=== PATIENT | male | born 1990 | race Caucasian/White ===

== ENCOUNTER 2018-01-02 15:50 | Emergency (ER) | payer OTHER, MEDICAID, SELFPAY ==
[2018-01-02 15:59] VITALS: BP 119/76; PULSE 86; RESP 20; TEMP 36.7; O2SAT 95
--- NOTE | 2018-01-02 20:40 | ED_ITS ---
HPI - Skin/Abscess/Foreign Bdy <Arely Galeano PA-C - Last Filed: 01/02/18 22:58> General Chief complaint: Skin/Abscess/Foreign Body Stated complaint: OPEN WOUNDS ALL OVER BODY Time Seen by Provider: 01/02/18 20:40 Source: patient Mode of arrival: ambulatory Limitations: no limitations History of Present Illness HPI narrative: This 27-year-old male comes in due to persistent facial lesions. He states that he was seen at another local hospital about a week ago ago for what started as a pimple on his central forehead, and he states that this was drained and he was put on an antibiotic. He is not sure what the antibiotic was , states taking once a day. He states that he has also had many other sores on his face which continue to increase, with some drainage and persistent yellow crusting. He states he does not usually get acne. He has various chronic sores on his extremities that he states are related to previous drug use, which he discontinued in October when he was incarcerated. The facial lesions are new since the of the month when he was released from nursing home. He states he did not have these in nursing home. He states since he started, he has felt warm a couple of times but has not had any known fever. He denies any systemic or chronic illness or infectious disease or other complaints today and states he mainly came in because this is not getting better on antibiotics Related Data Previous Rx's Medication Instructions Recorded clindamycin HCl 300 mg PO Q6H 7 Days #28 cap 01/02/18 mupirocin 1 applictn TOP BID #30 gram 01/02/18 Allergies Allergy/AdvReac Type Severity Reaction Status Date / Time No Known Drug Allergies Allergy Verified 01/02/18 21:42 Review of Systems <Arely Galeano PA-C - Last Filed: 01/02/18 22:58> Review of Systems All systems reviewed & are unremarkable except as noted in HPI and below Exam <Arely Galeano PA-C - Last Filed: 01/02/18 22:58> Initial Vital Signs Initial Vital Signs: Vital Signs Temperature 98.1 F 01/02/18 15:59 Pulse Rate 86 01/02/18 15:59 Respiratory Rate 20 01/02/18 15:59 Blood Pressure 119/76 01/02/18 15:59 Pulse Oximetry 95 01/02/18 15:59 GENERAL APPEARANCE: Patient sitting comfortably, in no distress. NECK: Supple, no lymphadenopathy LUNGS: Clear to auscultation bilaterally. HEART: Rate and rhythm regular without murmur, normal S1 and S2, no S3 or S4. DERMATOLOGIC: There are numerous large papular lesions scattered about the face , most concentrated on the forehead and chin. Most of these are scabbed, with some yellow crusting. There is an occasional papular or pustular lesion, no abscess or fluctuance. Dried, pale lesions without crusting are noticed over the extremities EXTREMITIES: No edema <Jaya Irwin DO - Last Filed: 01/03/18 03:53> Initial Vital Signs Initial Vital Signs: Vital Signs Temperature 98.1 F 01/02/18 15:59 Pulse Rate 86 01/02/18 15:59 Respiratory Rate 20 01/02/18 15:59 Blood Pressure 119/76 01/02/18 15:59 Pulse Oximetry 95 01/02/18 15:59 Course <Arely Galeano PA-C - Last Filed: 01/02/18 22:58> Orders Ordered: Discontinued Medications Clindamycin HCl (Cleocin) 300 mg PO NOW ONE Stop: 01/02/18 21:05 Last Admin: 01/02/18 21:43 Dose: 300 mg Ibuprofen (Advil) 800 mg PO NOW ONE Stop: 01/02/18 21:05 Last Admin: 01/02/18 21:43 Dose: 800 mg Vital Signs - 8 hr 01/02/18 21:57 Pulse Rate 78 Respiratory Rate 18 Blood Pressure [Left Arm] 96/60 Pulse Oximetry 198 H <Jaya Irwin DO - Last Filed: 01/03/18 03:53> Orders Ordered: Discontinued Medications Clindamycin HCl (Cleocin) 300 mg PO NOW ONE Stop: 01/02/18 21:05 Last Admin: 01/02/18 21:43 Dose: 300 mg Ibuprofen (Advil) 800 mg PO NOW ONE Stop: 01/02/18 21:05 Last Admin: 01/02/18 21:43 Dose: 800 mg Vital Signs - 8 hr 01/02/18 21:57 Pulse Rate 78 Respiratory Rate 18 Blood Pressure [Left Arm] 96/60 Pulse Oximetry 198 H Discharge Plan Departure Patient Disposition: Home, Self-Care Clinical Impression: Staph skin infection, Impetigo Discharge Date/Time: 01/02/18 22:01 Interventions: ED Discharge Assessment Last Done: 01/02/18 22:00 Instructions: DI for Impetigo Activity Restrictions/Additional Instructions: I suspect that you have a skin infection from bacteria called Streptococcus and Staphylococcus that can cause pimple like lesions and crusting like you have had. You do not appear to need drainage of another abscess or lesion at this point. Since we cannot determine what antibiotic you have been taking, please discontinue this and changed to the clindamycin that we started you on tonight. I have sent a prescription for that to [facility] for you to continue in the morning. Please continue ibuprofen as well, 800 mg every 8 hr as needed for pain and inflammation. Please call your insurance or the [facility] in [facility] if you have none to arrange for a referral to a primary care provider for follow up. In the interim you should return to the closest ED or urgent care if you have any acutely worsening symptoms. Prescriptions: New clindamycin HCl 300 mg capsule 300 mg PO Q6H 7 Days Qty: 28 RF: 0 mupirocin 2 % ointment 1 applictn TOP BID Qty: 30 RF: 0 <Jaya Irwin DO - Last Filed: 01/03/18 03:53> [facility] ED Attending Zahida Attestation: I was immediately available in the department for consultation. Documentation has been reviewed. I agree with assessment and plan.
[2018-01-02] MEDS: IBUPROFEN 400 MG TABLET 800 MG PO (21:43)
[2018-01-02] MEDS: CLINDAMYCIN 150 MG CAPSULE 300 MG PO (21:43)
[2018-01-02 21:57] VITALS: BP 96/60; PULSE 78; RESP 18; O2SAT 198
== END 2018-01-02 22:01 | disposition home or self-care (01) ==
PROVIDERS: Emergency Provider Internal Medicine
DX: L08.9 Local infection of the skin and subcutaneous tissue, unspecified (principal); B95.8 Unspecified staphylococcus as the cause of diseases classified elsewhere; L01.00 Impetigo, unspecified
CPT/HCPCS: 99282; 99283

== ENCOUNTER 2018-01-16 22:15 | Emergency (ER) | payer OTHER, MEDICAID, SELFPAY ==
[2018-01-16 22:33] VITALS: BP 130/85; PULSE 71; RESP 18; TEMP 36.2; O2SAT 98
--- NOTE | 2018-01-17 00:16 | ED.RECABL ---
HPI - Recheck/Abnormal Lab/Rx General Chief Complaint: Recheck/Abnormal Lab/Rx Stated Complaint: STATES BLOOD INFECTION IN HIS HEART Time Seen by Provider: 01/17/18 00:16 Source: patient Mode of arrival: ambulatory Limitations: no limitations History of Present Illness HPI narrative: The patient was admitted at [facility] 2 days ago with sepsis. He has IV drug abuse issues. He was seen here 2-3 weeks ago with multiple small abscesses on the face, treated by Nataliia and Bactrim DS. One of two blood cultures from the initial visit was positive for MRSA. he still has skin lesions and apparently had erythema. He was admitted and started on IV vancomycin. He tells me he had fever and chills associated with the 1st visit, but now with the 2nd visit and admission. I reviewed his records, he was not febrile and did not have an elevated WBC with this admission. We called the check, blood cultures From the 2nd visitare still pending at this time. he was admitted and given IV antibiotics, the left AMA earlier today. He developed left arm thrombophlebitis, he called this to staff attention, but felt ignored. The IV was eventually removed and a 2nd IV placed in his right arm. The right arm was uncomfortable with the IV. He signed out AMA. He is not on antibiotics. Related Data Previous Rx's Medication Instructions Recorded mupirocin 1 applictn TOP BID #30 gram 01/02/18 sulfamethoxazole-trimethoprim 1 tab PO BID 10 Days #20 tab 01/17/18 Allergies Allergy/AdvReac Type Severity Reaction Status Date / Time No Known Drug Allergies Allergy Verified 01/02/18 21:42 Review of Systems Review of Systems All systems reviewed & are unremarkable except as noted in HPI and below Constitutional Reports as per HPI, Denies body ache(s), Denies chills, Reports fatigue and Denies fever(s) Eyes Denies change in vision, Denies eye discharge and Denies irritation ENT Ears, Nose, Mouth, and Throat: Denies dizziness, Denies dry mouth, Denies lip swelling and Denies mouth lesions Cardiovascular Denies chest pain, Denies irregular heart rhythm, Denies lightheadedness, Denies palpitations, Denies dyspnea, Denies dyspnea on exertion and Denies orthopnea Respiratory Denies cough, Denies dyspnea, Denies dyspnea on exertion and Denies wheezing Gastrointestinal Gastrointestinal: Denies abdominal pain, Denies change in bowel habits, Denies diarrhea, Denies nausea and Denies vomiting Musculoskeletal Denies back pain, Denies muscle weakness, Denies numbness and Denies tingling Integumentary/Breasts Denies pruritus, Denies erythema, Denies rash and Denies wounds Neurologic Denies confusion, Denies dizziness, Denies numbness and Denies tingling Psychiatric Denies confusion Endocrine Reports fatigue and Denies palpitations Allergic/Immunologic Denies lip swelling and Denies wheezing PFSH Medical History Polysubstance (including opioids) dependence w/o physiol dependence (Acute) History of drug abuse (Chronic) Social History Smoking Status: Former smoker Exam Initial Vital Signs Initial Vital Signs: Vital Signs Temperature 97.2 F L 01/16/18 22:33 Pulse Rate 71 01/16/18 22:33 Respiratory Rate 18 01/16/18 22:33 Blood Pressure 130/85 H 01/16/18 22:33 Pulse Oximetry 98 01/16/18 22:33 Const General: cooperative, comfortable, No acute distress and No diaphoretic Orientation: alert, awake and oriented x3 HENMT Head: normocephalic Mouth: oral mucosae normal Eyes Eyelids: eyelids normal Conjunctivae: conjunctivae normal Neck Neck: anterior neck swelling and lymphadenopathy Thyroid: thyroid normal Carotids: normal carotid upstroke Chest Chest: normal inspection of the chest Resp Effort & Inspection: normal respiratory effort, able to speak in complete sentences, no respiratory distress and no use of accessory muscles Auscultation: clear to auscultation bilaterally, no rales, no rhonchi and no wheezes Cardio Rate: regular rate Rhythm: regular rhythm Heart Sounds: no click, no gallops, no murmurs and no rubs Pulses: normal peripheral pulses GI Inspection: non-distended Palpation: soft, no hepatosplenomegaly, No guarding, No pulsatile mass and No tender Auscultation: normal bowel sounds Back/Spine/Pelvis Back: No CVA tenderness Cervical Spine: cervical ROM normal and No pain with cervical ROM Thoracic/Lumbar Spine: thoracic and lumbar spine normal to inspection Skin General: No jaundice, No petechiae and other ( He has brightly erythematous pick diggs across his face, upper torso, upper and lower extremities. There are eschar formations at multiple sites. There is subtle erythema multiple sites. He has no obvious abscess formation. There are no sites of fluctuance.) Neuro General: oriented x3 and no focal motor deficits Course Orders Ordered: ED Orders 01/17/18 00:52 Blood Culture Stat Complete Blood Count AUTO DIFF Stat Comprehensive Metabolic Panel Stat Lactate (Lactic Acid) Stat Partial Thromboplastin Time Stat Procalcitonin Stat Prothrombin Time INR Stat Discontinued Medications Trimethoprim/Sulfamethoxazole (Bactrim Ds Prepack) 1 bottle MISC SEEINSTR ONE Stop: 01/17/18 01:43 Last Admin: 01/17/18 01:51 Dose: 1 bottle Vital Signs - 8 hr 01/16/18 22:33 Temperature 97.2 F L Pulse Rate 71 Respiratory Rate 18 Blood Pressure 130/85 H Pulse Oximetry 98 MDM - Recheck/Abnormal Lab/Rx Lab Data Result diagrams: 01/17/18 00:52 01/17/18 00:52 Lab Results 01/17/18 01/17/18 01/17/18 Range/Units 00:52 00:52 00:52 WBC (4.5-11.0) X10^3/uL RBC (4.5-5.9) X10^6/uL Hgb (13.5-17.5) g/dL Hct (41-53) % MCV (80-100) fL MCH (26-34) PG MCHC (30-36) % RDW (11.6-14.8) % Plt Count (150-400) X10^3/uL Neut % (Auto) (50-75) % Lymph % (Auto) (25-40) % Corson % (Auto) (3-14) % Eos % (Auto) (2-4) % Baso % (Auto) (0-2) % Neut # (Auto) (6732-2681) /uL PT 11.5 (10.1-12.7) SECONDS INR 1.1 (0.9-1.3) APTT 32 (26.4-36.2) SECONDS Sodium (137-145) mmol/L Potassium (3.4-5.1) mmol/L Chloride (98-107) mmol/L Carbon Dioxide (22-32) mmol/L BUN (9-20) mg/dL Creatinine (0.66-1.25) mg/dL Estimated GFR (>60) mL/min BUN/Creatinine Ratio (6-22) Glucose (70-100) mg/dL Lactate 0.8 (0.7-2.1) mmol/L Calcium (8.4-10.2) mg/dL Total Bilirubin (0.2-1.3) mg/dL AST (17-59) IU/L ALT (21-72) IU/L Alkaline Phosphatase (38-126) U/L Total Protein (6.3-8.2) g/dL Albumin (3.5-5.0) g/dL Globulin (1.7-4.1) g/dL Albumin/Globulin Ratio (1.0-2.8) Procalcitonin < 0.05 (<0.5) ng/mL 01/17/18 01/17/18 Range/Units 00:52 00:52 WBC 8.9 (4.5-11.0) X10^3/uL RBC 4.13 L (4.5-5.9) X10^6/uL Hgb 12.5 L (13.5-17.5) g/dL Hct 37.2 L (41-53) % MCV 90.1 (80-100) fL MCH 30.2 (26-34) PG MCHC 33.5 (30-36) % RDW 14.7 (11.6-14.8) % Plt Count 411 H (150-400) X10^3/uL Neut % (Auto) 66.2 (50-75) % Lymph % (Auto) 24.6 L (25-40) % Corson % (Auto) 7.3 (3-14) % Eos % (Auto) 1.2 L (2-4) % Baso % (Auto) 0.7 (0-2) % Neut # (Auto) 5900 (8700-4493) /uL PT (10.1-12.7) SECONDS INR (0.9-1.3) APTT (26.4-36.2) SECONDS Sodium 144 (137-145) mmol/L Potassium 3.9 (3.4-5.1) mmol/L Chloride 106 (98-107) mmol/L Carbon Dioxide 28 (22-32) mmol/L BUN 12 (9-20) mg/dL Creatinine 0.60 L (0.66-1.25) mg/dL Estimated GFR > 60.0 (>60) mL/min BUN/Creatinine Ratio 20.0 (6-22) Glucose 96 (70-100) mg/dL Lactate (0.7-2.1) mmol/L Calcium 8.9 (8.4-10.2) mg/dL Total Bilirubin 0.2 (0.2-1.3) mg/dL AST 49 (17-59) IU/L ALT 66 (21-72) IU/L Alkaline Phosphatase 87 (38-126) U/L Total Protein 7.3 (6.3-8.2) g/dL Albumin 4.0 (3.5-5.0) g/dL Globulin 3.3 (1.7-4.1) g/dL Albumin/Globulin Ratio 1.2 (1.0-2.8) Procalcitonin (<0.5) ng/mL MDM Narrative Medical decision making narrative: There is no clinical or lab data suggesting sepsis. Blood cultures were repeated, blood cultures are pending at [facility]. Prior decisions were made on blood cultures of 2-3 weeks duration Discharge Plan Departure Patient Disposition: Home, Self-Care Clinical Impression: Trichotillomania, Drug abuse, IV Discharge Date/Time: 01/17/18 02:26 Interventions: ED Discharge Assessment Last Done: 01/17/18 02:26 Instructions: DI for Drug Abuse and Drug Addiction Activity Restrictions/Additional Instructions: I would recommend coming in during daytime business hours, and see about contacting the social work administrator. You should look at getting help to establish a primary care doctor. The social workers may also be would help you with rehab for drug dependence. If you establish care with a physician, you can then look into hepatitis C treatment. For tonight, I will start on antibiotics. Septra DS 2 times daily for 10 days will be prescribed. We have done blood cultures, and will call you if the cultures are positive. [facility] also has blood cultures with results pending. You would get a call from them if there is a positive culture from her visit there 2 days ago. Return here if you develop fever or weakness. Prescriptions: New sulfamethoxazole-trimethoprim 800-160 mg tablet 1 tab PO BID 10 Days Qty: 20 RF: 0 No Action mupirocin 2 % ointment 1 applictn TOP BID Qty: 30 RF: 0
[2018-01-17 01:20] LABS: Lactate (Lactic Acid) 0.8 mmol/L (0.7-2.1)
[2018-01-17 01:24] LABS: Add Manual Diff / Slide Review NO; Alanine Aminotransferase 66 IU/L (21-72); Albumin Globulin Ratio 1.2 (1.0-2.8); Alkaline Phosphatase 87 U/L (38-126); Aspartate Aminotransferase 49 IU/L (17-59); Basophils Percent Auto 0.7 % (0-2); Bilirubin Total 0.2 mg/dL (0.2-1.3); Blood Urea Nitrogen 12 mg/dL (9-20); Calcium 8.9 mg/dL (8.4-10.2); Carbon Dioxide 28 mmol/L (22-32); Chloride 106 mmol/L (98-107); Eosinophils Percent Auto 1.2 % (2-4); Estimated Glomerular Filt Rate > 60.0 mL/min (>60); Globulin 3.3 g/dL (1.7-4.1); Glucose 96 mg/dL (70-100); HEMOLYSIS < 15 (0-50); Hematocrit 37.2 % (41-53); Hemoglobin 12.5 g/dL (13.5-17.5); Lymphocytes Percent Auto 24.6 % (25-40); Mean Corpuscular HGB Conc 33.5 % (30-36); Mean Corpuscular Hemoglobin 30.2 PG (26-34); Mean Corpuscular Volume 90.1 fL (80-100); Monocytes Percent Auto 7.3 % (3-14); Neutrophils Absolute Auto 5900 /uL (3000-5900); Neutrophils Percent Auto 66.2 % (50-75); Platelet Count 411 X10^3/uL (150-400); Potassium 3.9 mmol/L (3.4-5.1); Red Blood Cell Count 4.13 X10^6/uL (4.5-5.9); Red Cell Distribution Width 14.7 % (11.6-14.8); Sodium 144 mmol/L (137-145); Total Protein 7.3 g/dL (6.3-8.2); White Blood Cell Count 8.9 X10^3/uL (4.5-11.0)
[2018-01-17 01:25] LABS: INR 1.1 (0.9-1.3); PTT Partial Thromboplastin Tim 32 SECONDS (26.4-36.2); Prothrombin Time 11.5 SECONDS (10.1-12.7)
[2018-01-17 01:42] LABS: Procalcitonin < 0.05 ng/mL (<0.5)
[2018-01-17] MEDS: SULFA/TRIMETH 800/160 PREPACK 1 BOTTLE MISC (01:51)
== END 2018-01-17 02:26 | disposition home or self-care (01) ==
PROVIDERS: Emergency Provider Emergency Medicine
DX: F63.3 Trichotillomania (principal); F19.10 Other psychoactive substance abuse, uncomplicated
CPT/HCPCS: 36415; 36591; 80053; 83605; 84145; 85025; 85610; 85730; 87040; 99282; 99283

== ENCOUNTER 2018-03-17 00:22 | Emergency (ER) | payer OTHER, MEDICAID, SELFPAY ==
--- NOTE | 2018-03-17 00:29 | DI.RAD.S_ITS ---
PROCEDURE: XR CHEST 1V INDICATIONS: cough, recently started smoking heroin TECHNIQUE: One view of the chest was acquired. COMPARISON: None. FINDINGS: Surgical changes and devices: None. Lungs and pleura: No pleural effusions or pneumothorax. Lungs are clear. Mediastinum: Mediastinal contours appear normal. Heart size is normal. Bones and chest wall: No suspicious bony lesions. Overlying soft tissues appear unremarkable. IMPRESSION: No acute disease. Dictated by: Christiano Bruner M.D. on 03/17/2018 at 8:40 Approved by: Christiano Bruner M.D. on 03/17/2018 at 8:45
[2018-03-17 00:30] VITALS: BP 119/80; PULSE 103; RESP 18; TEMP 37.2; O2SAT 97; BMI 15.3
--- NOTE | 2018-03-17 00:39 | ED.BACK ---
HPI - Back Pain/Injury General Chief Complaint: Back Pain/Injury Stated Complaint: fit for fdc Time Seen by Provider: 03/17/18 00:28 Source: patient and police Mode of arrival: ambulatory Limitations: no limitations History of Present Illness HPI Narrative: 27-year-old male with history of smoking and illicit drug use presents to the emergency department today with a chief complaint of cough. he states he has had a cough for the past few days which coincides with his switch from IV heroin to smoking heroin. He denies any shortness of breath, fever or chest pain but does have some purulent sputum on occasion. He has been diagnosed with MRSA in the past and has frequent incarceration is. He was seen about a week ago at [facility] and had extensive lab work and he was diagnosed with a dental abscess and placed on clindamycin. It sounds like he has largely been taking the antibiotics but it is not clear. He denies any nausea, vomiting or diarrhea and is otherwise well and free of complaint. MD Complaint: other ( Cough) Onset (ago): day(s) Duration: intermittent Similar Symptoms Previously: Yes Severity: mild Associated symptoms: denies other symptoms Related Data Previous Rx's Medication Instructions Recorded mupirocin 1 applictn TOP BID #30 gram 01/02/18 doxycycline hyclate 100 mg PO BID #20 tab 03/17/18 Allergies Allergy/AdvReac Type Severity Reaction Status Date / Time No Known Drug Allergies Allergy Verified 01/02/18 21:42 Review of Systems Review of Systems All systems reviewed & are unremarkable except as noted in HPI and below Constitutional Denies chills, Denies fever(s), Denies lethargy and Denies weakness Eyes Denies change in vision, Denies eye discharge, Denies irritation and Denies loss of vision ENT Ears, Nose, Mouth, and Throat: Denies change in voice, Denies neck pain and Denies sore throat Cardiovascular Denies chest pain, Denies irregular heart rhythm, Denies lightheadedness, Denies palpitations, Denies dyspnea, Denies dyspnea on exertion and Denies orthopnea Respiratory Reports cough, Denies dyspnea, Denies dyspnea on exertion and Denies wheezing Gastrointestinal Gastrointestinal: Denies abdominal pain, Denies change in bowel habits, Denies diarrhea, Denies nausea and Denies vomiting Genitourinary Denies hematuria, Denies flank pain, Denies urinary incontinence and Denies urinary urgency Musculoskeletal Reports back pain and Denies neck pain Integumentary/Breasts Denies pruritus, Denies erythema, Denies rash and Denies wounds Neurologic Denies confusion, Denies loss of vision and Denies weakness Psychiatric Denies anxiety, Denies confusion, Denies depression, Denies homicidal ideation and Denies suicidal ideation Endocrine Denies palpitations Hematologic/Lymphatic Denies easy bruising Allergic/Immunologic Denies wheezing [facility] Medical History Polysubstance (including opioids) dependence w/o physiol dependence (Acute) History of drug abuse (Chronic) Social History Smoking Status: Former smoker Exam Narrative Exam Narrative: GENERAL: This is a well-nourished, well-developed patient, in mild distress. in handcuffs HEAD: Atraumatic. Normocephalic. No temporal or scalp tenderness. EYES: Pupils equal round and reactive. Extraocular motions intact. No scleral icterus. No injection or drainage. ENT: poor dentition throughoutNose without bleeding, purulent drainage or septal hematoma. Throat without erythema, tonsillar hypertrophy or exudate. Uvula midline. Airway patent. NECK: Trachea midline. No JVD or lymphadenopathy. Supple, nontender, no meningeal signs. CARDIOVASCULAR: Regular rate and rhythm without murmurs, gallops, or rubs. RESPIRATORY: Clear to auscultation. Breath sounds equal bilaterally. No wheezes, rales, or rhonchi. GASTROINTESTINAL: Abdomen soft, non-tender, nondistended. No hepato-splenomegaly, or palpable masses. No guarding. EXTREMITIES: No clubbing, cyanosis, or edema. No joint tenderness, effusion, or edema noted. BACK: the patient has mild tenderness in the left upper paraspinal muscles which is palpable and reproducible. There is no midline tenderness NEURO: AOx3. SKIN: multiple skin excoriations but no drainable abscess or no significant erythema Initial Vital Signs Initial Vital Signs: Vital Signs Temperature 99 F 03/17/18 00:30 Pulse Rate 103 H 03/17/18 00:30 Respiratory Rate 18 03/17/18 00:30 Blood Pressure 119/80 03/17/18 00:30 Pulse Oximetry 97 09/29/18 00:30 Course Orders Ordered: ED Orders 03/17/18 00:29 XR chest 1V Stat Vital Signs - 8 hr 03/17/18 00:30 Temperature 99 F Pulse Rate 103 H Respiratory Rate 18 Blood Pressure 119/80 Pulse Oximetry 97 MDM - Back Pain/Injury MDM Narrative Medical decision making narrative: patient complains of cough after recently starting to smoke air when. He denies chest pain or shortness of breath nor fever or chills. Chest x-ray is unremarkable as is cardiopulmonary exam. He is placed on doxycycline for the possibility of an early pneumonia which has yet to demonstrate on physical exam or x-ray, this should cover him for MRSA as well as endocarditis considered but patient has no chest pain, shortness of breath or fever Diskitis and epidural abscess considered but no fever or midline back pain Discharge Plan Departure Patient Disposition: Released, Other Clinical Impression: Medical clearance for incarceration, MRSA carrier Instructions: DI for Methicillin-Resistant Staph Infection (MRSA) Activity Restrictions/Additional Instructions: *You have been diagnosed with [ medical clearance for incarceration and likely ongoing MRSA cellulitis of face ] *What to do: *Take medications as directed *Follow up with your primary care provider in 2-3 days, call for an appointment. Let them know you were seen in the Emergency Department and that we ask that you be seen in follow up *Return to ER if you should have any new, worsening or concerning symptoms, such as [chest pain, fever over 101F, shortness of breath, or other bothersome symptoms ] Prescriptions: New doxycycline hyclate 100 mg tablet 100 mg PO BID Qty: 20 RF: 0 No Action mupirocin 2 % ointment 1 applictn TOP BID Qty: 30 RF: 0
--- NOTE | 2018-03-17 00:52 | ED_ITS ---
HPI - Back Pain/Injury General Chief Complaint: Back Pain/Injury Stated Complaint: fit for detention Time Seen by Provider: 03/17/18 00:28 Source: patient and police Mode of arrival: ambulatory Limitations: no limitations History of Present Illness HPI Narrative: 27-year-old male with history of smoking and illicit drug use presents to the emergency department today with a chief complaint of cough. he states he has had a cough for the past few days which coincides with his switch from IV heroin to smoking heroin. He denies any shortness of breath, fever or chest pain but does have some purulent sputum on occasion. He has been diagnosed with MRSA in the past and has frequent incarceration is. He was seen about a week ago at [facility] and had extensive lab work and he was diagnosed with a dental abscess and placed on clindamycin. It sounds like he has largely been taking the antibiotics but it is not clear. He denies any nausea, vomiting or diarrhea and is otherwise well and free of complaint. MD Complaint: other ( Cough) Onset (ago): day(s) Duration: intermittent Similar Symptoms Previously: Yes Severity: mild Associated symptoms: denies other symptoms Related Data Previous Rx's Medication Instructions Recorded mupirocin 1 applictn TOP BID #30 gram 01/02/18 doxycycline hyclate 100 mg PO BID #20 tab 03/17/18 Allergies Allergy/AdvReac Type Severity Reaction Status Date / Time No Known Drug Allergies Allergy Verified 01/02/18 21:42 Review of Systems Review of Systems All systems reviewed & are unremarkable except as noted in HPI and below Constitutional Denies chills, Denies fever(s), Denies lethargy and Denies weakness Eyes Denies change in vision, Denies eye discharge, Denies irritation and Denies loss of vision ENT Ears, Nose, Mouth, and Throat: Denies change in voice, Denies neck pain and Denies sore throat Cardiovascular Denies chest pain, Denies irregular heart rhythm, Denies lightheadedness, Denies palpitations, Denies dyspnea, Denies dyspnea on exertion and Denies orthopnea Respiratory Reports cough, Denies dyspnea, Denies dyspnea on exertion and Denies wheezing Gastrointestinal Gastrointestinal: Denies abdominal pain, Denies change in bowel habits, Denies diarrhea, Denies nausea and Denies vomiting Genitourinary Denies hematuria, Denies flank pain, Denies urinary incontinence and Denies urinary urgency Musculoskeletal Reports back pain and Denies neck pain Integumentary/Breasts Denies pruritus, Denies erythema, Denies rash and Denies wounds Neurologic Denies confusion, Denies loss of vision and Denies weakness Psychiatric Denies anxiety, Denies confusion, Denies depression, Denies homicidal ideation and Denies suicidal ideation Endocrine Denies palpitations Hematologic/Lymphatic Denies easy bruising Allergic/Immunologic Denies wheezing [facility] Medical History Polysubstance (including opioids) dependence w/o physiol dependence (Acute) History of drug abuse (Chronic) Social History Smoking Status: Former smoker Exam Narrative Exam Narrative: GENERAL: This is a well-nourished, well-developed patient, in mild distress. in handcuffs HEAD: Atraumatic. Normocephalic. No temporal or scalp tenderness. EYES: Pupils equal round and reactive. Extraocular motions intact. No scleral icterus. No injection or drainage. ENT: poor dentition throughoutNose without bleeding, purulent drainage or septal hematoma. Throat without erythema, tonsillar hypertrophy or exudate. Uvula midline. Airway patent. NECK: Trachea midline. No JVD or lymphadenopathy. Supple, nontender, no meningeal signs. CARDIOVASCULAR: Regular rate and rhythm without murmurs, gallops, or rubs. RESPIRATORY: Clear to auscultation. Breath sounds equal bilaterally. No wheezes , rales, or rhonchi. GASTROINTESTINAL: Abdomen soft, non-tender, nondistended. No hepato-splenomegaly , or palpable masses. No guarding. EXTREMITIES: No clubbing, cyanosis, or edema. No joint tenderness, effusion, or edema noted. BACK: the patient has mild tenderness in the left upper paraspinal muscles which is palpable and reproducible. There is no midline tenderness NEURO: AOx3. SKIN: multiple skin excoriations but no drainable abscess or no significant erythema Initial Vital Signs Initial Vital Signs: Vital Signs Temperature 99 F 03/17/18 00:30 Pulse Rate 103 H 03/17/18 00:30 Respiratory Rate 18 03/17/18 00:30 Blood Pressure 119/80 03/17/18 00:30 Pulse Oximetry 97 09/29/18 00:30 Course Orders Ordered: ED Orders 03/17/18 00:29 XR chest 1V Stat Vital Signs - 8 hr 03/17/18 00:30 Temperature 99 F Pulse Rate 103 H Respiratory Rate 18 Blood Pressure 119/80 Pulse Oximetry 97 MDM - Back Pain/Injury MDM Narrative Medical decision making narrative: patient complains of cough after recently starting to smoke air when. He denies chest pain or shortness of breath nor fever or chills. Chest x-ray is unremarkable as is cardiopulmonary exam. He is placed on doxycycline for the possibility of an early pneumonia which has yet to demonstrate on physical exam or x-ray, this should cover him for MRSA as well as endocarditis considered but patient has no chest pain, shortness of breath or fever Diskitis and epidural abscess considered but no fever or midline back pain Discharge Plan Departure Patient Disposition: Released, Other Clinical Impression: Medical clearance for incarceration, MRSA carrier Instructions: DI for Methicillin-Resistant Staph Infection (MRSA) Activity Restrictions/Additional Instructions: *You have been diagnosed with [ medical clearance for incarceration and likely ongoing MRSA cellulitis of face ] *What to do: *Take medications as directed *Follow up with your primary care provider in 2-3 days, call for an appointment. Let them know you were seen in the Emergency Department and that we ask that you be seen in follow up *Return to ER if you should have any new, worsening or concerning symptoms , such as [chest pain, fever over 101F, shortness of breath, or other bothersome symptoms ] Prescriptions: New doxycycline hyclate 100 mg tablet 100 mg PO BID Qty: 20 RF: 0 No Action mupirocin 2 % ointment 1 applictn TOP BID Qty: 30 RF: 0
[2018-03-17] MEDS: DOXYCYCLINE HYCLATE 100 MG TABLET PO (01:00)
== END 2018-03-17 01:05 | disposition home or self-care (01) ==
PROVIDERS: Emergency Provider Emergency Medicine
DX: Z00.8 Encounter for other general examination (principal); Z22.321 Carrier or suspected carrier of Methicillin susceptible Staphylococcus aureus
CPT/HCPCS: 71045; 99282; 99283

== ENCOUNTER 2023-04-25 20:55 | Emergency (ER) | payer OTHER, MEDICAID, SELFPAY ==
[2023-04-25 21:08] VITALS: BP 126/80; PULSE 80; RESP 16; TEMP 36.8; O2SAT 100; BMI 16.2
== END 2023-04-25 22:09 | disposition left against medical advice (07) ==
PROVIDERS: Emergency Provider Emergency Medicine
DX: R07.9 Chest pain, unspecified (principal)
CPT/HCPCS: 99281

== ENCOUNTER → 2024-03-28 13:24 | Outpatient (CLI) | payer OTHER, MEDICAID, SELFPAY | PROVIDERS: Visit Provider Physician Assistant Medical | DX: R30.0 Dysuria (principal) | CPT/HCPCS: 87077; 87086; 87147 ==

== ENCOUNTER 2025-01-18 00:24 | Emergency (ER) | payer OTHER, MEDICAID, SELFPAY ==
[2025-01-18 00:37] VITALS: BP 140/92; PULSE 93; RESP 18; TEMP 36.6; O2SAT 99; BMI 18.3
--- NOTE | 2025-01-18 00:50 | ED_ITS ---
HPI - Wound/Laceration General Chief Complaint: Wound/Laceration Stated Complaint: LT Eye laceration, bleeding Time Seen by Provider: 01/18/25 00:30 Source: patient Mode of arrival: Family Vehicle History of Present Illness HPI narrative: 34-year-old gentleman history of IV drug use MRSA carrier accidentally hit by a metal bar to the left side of his face just above his left eye. He has a small laceration above left eye and his tetanus up-to-date. Denies any vision changes, nausea, vomiting, loss of consciousness, headache, neck pain. Other than what is stated 14 point review of systems negative. Related Data Previous Rx's ?Medication ?Instructions ?Recorded doxycycline hyclate 100 mg tablet 100 mg PO BID #20 ta bs 04/17/24 Allergies Allergy/AdvReac Type Severity Reaction Status Date / Time No Known Drug Allergies Allergy Verified 01/18/25 00:36 Review of Systems Review of Systems ROS Unobtainable: All systems reviewed & are unremarkable except as noted in HPI and below Patient History Medical History (Updated 01/18/25 @ 01:37 by Dakota Garcia DO) Polysubstance (including opioids) dependence w/o physiol dependence History of drug abuse Social History Smoking Status: Current every day smoker Smoking Status: Current every day smoker tobacco type: cigarettes and vaping alcohol intake frequency: holidays/special occasions only Exam Narrative Exam Narrative: GENERAL: [34] year old patient appears stated age. Well-developed patient, in mild distress. HEAD: Atraumatic. Normocephalic. EYES: Pupils equal round and reactive. Extraocular motions intact. No scleral icterus. No injection or drainage. ENT: Nose without bleeding, purulent drainage. Throat without erythema, tonsillar hypertrophy or exudate. Airway patent. Left forehead tender to palpate with linear superficial laceration 0.25 x 0.25 cm NECK: Trachea midline. Non tender CARDIOVASCULAR: Regular rate and rhythm without murmurs, gallops, or rubs. RESPIRATORY: Clear to auscultation. Breath sounds equal bilaterally. No wheezes, rales, or rhonchi. GASTROINTESTINAL: Abdomen soft, non-tender, nondistended. EXTREMITIES: No edema or joint tenderness. BACK: Nontender without deformity or crepitance. No flank tenderness. NEURO: AOx3. GCS 15 nonfocal neuro exam SKIN: No rash or erythema of visible areas Initial Vital Signs Initial Vital Signs: Vital Signs Temperature 97.8 F 01/18/25 00:37 Pulse Rate 93 H 01/18/25 00:37 Respiratory Rate 18 01/18/25 00:37 Blood Pressure 140/92 H 01/18/25 00:37 Pulse Oximetry 99 01/18/25 00:37 Oxygen Delivery Method Room Air 01/18/25 00:37 Course Orders Ordered: ED Orders 01/18/25 00:49 CT facial bones wo con Stat Discontinued Medications Hydrocodone Bitart/Acetaminophen (Hydrocodone/Acet 5/325 Tablet) 1 tab PO NOW ONE Stop: 01/18/25 00:50 Last Admin: 01/18/25 00:56 Dose: Not Given Documented By: VENITA Ibuprofen (Ibuprofen 400 Mg Tablet) 800 mg PO NOW ONE Stop: 01/18/25 00:50 Last Admin: 01/18/25 00:56 Dose: 800 mg Documented By: VENITA Vital Signs Vital signs: Vital Signs - 8 hr 01/18/25 00:37 Temperature 97.8 F Pulse Rate 93 H Respiratory Rate 18 Blood Pressure 140/92 H Pulse Oximetry 99 Oxygen Delivery Method Room Air MDM - Wound/Laceration Imaging Data CT scan - head: Radiologist's Impression: [place] [address] CT Scan Report Signed Patient: Dali Kaiser MR#: [id number] : 1990 Acct:[id number] Age/Sex: 34 / M Date of Service: 01/18/25 Loc: ED Accession Number: [id number] Procedure: CT facial bones wo con Ordering Provider: Dakota Garcia D.O. PROCEDURE: CT FACIAL BONES WO CON INDICATIONS: trauma TECHNIQUE: Noncontrast 2.5 mm thick axial images acquired from the mandible through the frontal sinuses, with coronal and sagittal reformatting. For radiation dose reduction, the following was used: automated exposure control, adjustment of mA and/or kV according to patient size. COMPARISON: CT, CT FACIAL BONES WITH CONTRAST, 03/10/2018, 4:29. FINDINGS: Image quality: Excellent. Bones and teeth: Orbital hare are intact. Sinus hare show no fracture or deformity. Nasal bones and septum are intact. Visualized portions of the mandible demonstrate no fractures or subluxation. Zygomatic arches are intact. Pterygoid plates are intact. Visualized portions of the skull base and auditory canals are intact. Sinuses: Paranasal sinuses are aerated, without fluid levels, mucosal thickening, or mucoceles. Mastoid air cells are aerated. Soft tissues: No edema, masses, or fluid collections. No enlarged lymph nodes. No soft tissue lacerations or debris. Vascular: Visualized vascular structures appear normal in the absence of contrast. Bony vascular foramina and canals are intact. IMPRESSION: No visualized fracture. MDM Narrative Medical decision making narrative: Vital signs, nurse triage note, medication list, previous ER visits, and all imaging study reviewed. Patient given [place] and ibuprofen here. Steri-Strips applied and bacitracin ointment applied to laceration site. Differential diagnosis includes fracture, contusion, laceration, cellulitis. Discharge Plan Departure Patient Disposition: Home Clinical Impression: Superficial laceration of face Contusion of face Qualifiers: Encounter type: initial encounter Qualified Code(s): S00.83XA - Contusion of other part of head, initial encounter Instructions: DI for Contusion Activity Restrictions/Additional Instructions: Return with new or worsening symptoms. Take Tylenol and/or ibuprofen for pain control. Follow up with PCP in 1-2 weeks no improvement in symptoms. Prescriptions: No Action doxycycline hyclate 100 mg tablet 100 mg PO BID Qty: 20 0RF Referrals: Miscellaneous,[facility] [Primary Care Provider, Medical] Stand Alone Forms: Patient Portal/API
[2025-01-18] MEDS: IBUPROFEN 400 MG TABLET 800 MG PO (00:56)
[2025-01-18] MEDS: BACITRACIN OINT 0.9 GM PCKT 1 APPLIC TOP (01:56)
== END 2025-01-18 02:02 | disposition home or self-care (01) ==
PROVIDERS: Emergency Provider Family Medicine
DX: S01.81XA Laceration without foreign body of other part of head, initial encounter (principal); S00.83XA Contusion of other part of head, initial encounter; W22.8XXA Striking against or struck by other objects, initial encounter
CPT/HCPCS: 70486; 99283; 99284